=== PATIENT | female | born 1940 | race Caucasian/White ===

== ENCOUNTER 2016-10-24 20:03 | Emergency (ER) | payer MEDICARE ==
[~2016-10-24] VITALS: Ht 165.1 cm; Wt 70.5 kg
[~2016-10-24 20:03] MED LIST: CA C1TAB77 PO; LATA2.5D6 OP; METO50TA3 PO; TIMO5DRO27 OP; WARF2.5T82 PO; WARF5TAB7 PO
[2016-10-24 20:10] VITALS: BP 131/71; PULSE 64; RESP 16; O2SAT 97
--- NOTE | 2016-10-24 20:38 | DRSVH ---
PROCEDURE: X-RAY CHEST ONE VIEW, PORTABLE ([id number]) INDICATIONS: 76 year-old female with chest pain and atrial fibrillation. TECHNIQUE: One view of the chest was acquired. COMPARISON: [facility], [place], XR CHEST 1VW (PORTABLE), 03/03/2015, 14:28. FINDINGS: Surgical changes and devices: Right axillary lymph node dissection clips are again noted. Lungs and pleura: No pleural effusions or pneumothorax. Lungs are clear. Mediastinum: Mediastinal contours appear normal. Heart size is normal. Bones and chest wall: No suspicious bony lesions. Overlying soft tissues appear unremarkable. IMPRESSION: No acute cardiopulmonary disease. Dictated by: Tom Noe M.D. on 10/24/2016 at 20:36 Approved by: Tom Noe M.D. on 10/24/2016 at 20:37
[2016-10-24 20:51] LABS: BASOPHILS % (AUTO) 0.2 % (0-3); EOSINOPHILS % (AUTO) 0 % (0-5); MONOCYTES % (AUTO) 9.1 % (4-12); Mean Corpuscular Hemoglobin 30.6 pg (27.0-35.0); Mean Corpuscular Volume 94.9 fL (81-100); NEUTROPHILS % (AUTO) 60.4 % (40-74); Platelet Count 158 bil/L (150-400)
--- NOTE | 2016-10-24 21:15 | ED.REPORT ---
HPI-Chest Pain 40 and Over Date of Service Oct 24, 2016 ED Provider: Dr. Tay Pt is a 76 year old female with a hx of Afib (on Metoprolol and Coumadin) and breast cancer presenting to the ED complaining of chest tightness and SOB onset 6 days ago while she was sleeping. Denies nausea, vomiting, diaphoresis, or a cough. The SOB is exacerbated by laying down. She has a hx of cardioversions for Afib and her PCP wanted her to have a cardioversion today but she declined because she was busy moving. She stopped in tonight because she hoped we would be able to do her cardioversion. Nursing Notes Stated Complaint: AFIB, SHORTNESS OF BREATH, CHEST TIGHTNESS Chief Complaint: Chest Pain Nursing Notes Reviewed: Yes Allergies: Coded Allergies: No Known Allergies (Unverified , 10/24/16) Scheduled Ca Carb/Vit D3/Mag Ox/Zn Oxide (Boubacar Mag Zinc + D3 Tablet) 1 Each Tablet 1 EACH PO DAILY Latanoprost (Latanoprost) 2.5 Ml Drops 1 GTT OP HS Metoprolol Tartrate (Metoprolol Tartrate) 50 Mg Tablet 50 MG PO BID Timolol (Betimol) 5 Ml Drops 1 GTT OP BID Warfarin Sodium (Warfarin Sodium) 2.5 Mg Tablet 2.5 MG PO DAILY Warfarin Sodium (Warfarin Sodium) 5 Mg Tablet 5 MG PO DAILY General Time Seen by MD: 21:14 Chief Complaint Chest pain Hx Obtained From: Patient Arrived By: Walk-in Sudden in Onset?: No Onset Occurred: 6 days ago Symptom Duration: Since onset Quality: Painful Severity: Current: Mild Severity: Maximum: Moderate Recent Healthcare: No recent hospitalization, Recent doctor visit Similar Sx Previous: Yes Risk Factors )( CAD Risk Stratification Risk factors reviewed, Risk factors N/A Past Medical History Past Medical History breast cancer (currently undergoing treatment with anastrozole) paroxysmal atrial fibrillation (on warfarin) Smoking History Never Smoker Ambulatory Status Independent Review of Systems Respiratory: Reports: Shortness of breath, Denies: Non-productive cough Cardiovascular: Reports: Chest pain GI: Denies: Nausea, Vomiting Skin: Denies Diaphoresis Complete sys rev & neg: except as marked. Physical Exam Initial Vital Signs Vital Signs (First) Date Time Temp Pulse Resp B/P Pulse Ox O2 Delivery O2 Flow Rate FiO2 10/24/16 20:10 36.0 64 16 131/71 97 Room Air Initial VS: Reviewed Head / Eyes: Atraumatic, Normocephalic, PERRL ENT: Mucous membranes moist, Conjunctiva normal, No scleral icterus Extremities: Vascular intact, Neuro intact, No swelling, No tenderness Skin: Warm, Dry, No cyanosis Neurologic: Alert, Oriented, Nonfocal Psychiatric: Mood/affect normal, Behavior normal, Normal thought content General/Constitutional: Awake, Alert, No acute distress, Well appearing Respiratory / Chest: Atraumatic, Breath sounds NL, Breath sounds = bilat, No respiratory distress Cardiovascular: Heart rate NL, Heart sounds NL Afib Abdomen: Atraumatic, Soft, Non-tender Neck: Atraumatic, Supple, No JVD Interpretation & Diagnostics Lab Results Interpretation Result Diagram: 10/24/16204310/24/162043 Test 10/24/16 20:44 10/24/16 22:08 White Blood Count 5.1th/mm3 (3.8-10.1) Red Blood Count 4.28mil/mm3 (3.90-5.20) Hemoglobin 13.1g/dL (12.0-15.6) Hematocrit 40.6% (35.0-46.0) Mean Corpuscular Volume 94.9fL (81-100) Mean Corpuscular Hemoglobin 30.6pg (27.0-35.0) Mean Corpuscular Hemoglobin Concent 32.3% (32.0-37.0) Red Cell Distribution Width 12.7% (12.3-15.4) Platelet Count 158bil/L (150-400) Neutrophils (%) (Auto) 60.4% (40-74) Lymphocytes (%) (Auto) 30.1% (14-46) Monocytes (%) (Auto) 9.1% (4-12) Eosinophils (%) (Auto) 0% (0-5) Basophils (%) (Auto) 0.2% (0-3) Prothrombin Time 22.8sec (8.1-12.5) Prothromb Time International Ratio 2.10ratio Sodium Level 137mEq/L (134-144) Potassium Level 3.9mEq/L (3.5-5.2) Chloride Level 100mEq/L (97-108) Carbon Dioxide Level 24mmol/L (18-29) Blood Urea Nitrogen 15mg/dL (8-27) Creatinine 0.67mg/dL (0.57-1.00) Estimat Glomerular Filtration Rate 123mL/min (>59) Glucose Level 104mg/dL (60-99) Calcium Level 9.4mg/dL (8.5-10.1) Magnesium Level 2.1mg/dL (1.6-2.6) Total Bilirubin 0.7mg/dL (0.0-1.2) Aspartate Amino Transf (AST/SGOT) 23U/L (0-50) Alanine Aminotransferase (ALT/SGPT) 24U/L (0-32) Alkaline Phosphatase 72U/L (25-165) Pro-B-Type Natriuretic Peptide 1212pg/mL (0-738) Total Protein 7.3g/dL (6.4-8.4) Albumin 4.1g/dL (3.4-5.0) Troponin T 0.010ug/L (0.0-0.011) ECG Interpretation ECG Interpretation: Atrial fibrillation with a controlled rate. Right axis deviation. Time: 20:40 Interpreted by: ED physician Normal ECG Interpretation: Normal rate (77) ECG Interpretation: Afib, right axis deviation. No changes from previous. Time: 23:05 Interpreted by: ED physician Normal ECG Interpretation: Normal rate (66) X-Ray Chest Interpretation Chest Xray Interpretation: IMPRESSION: No acute cardiopulmonary disease. Dictated by: Tom Noe M.D. on 10/24/2016 at 20:36 View: Portable, 1 view Interpretation / Wet Read by: Interpret - Radiologist Re-Eval/Medical Decision Med Decision/Clinical Course 76-year-old with paroxysmal A. fib presents in A. fib onset two days ago seeking cardioversion. This was scheduled for this same day in the morning but she declined it. No indication for urgent cardioversion at this point. Negative enzymes 2 and unchanged EKG 2. 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 Time of Eval: 21:56 Patient Status: Condition improved Re-Evaluation/Progress Note: Discussed plan for repeat Troponin. Time of Eval: 23:12 Patient Status: Condition improved Re-Evaluation/Progress Note: Discussed plan for discharge. Pt understands and agrees. Counseled Regarding: Diagnosis, Lab results, Need for follow-up, When/why to return to ED Discharge & Departure Primary Impression: Non-cardiac chest pain Additional Impression: Paroxysmal atrial fibrillation Disposition: Home Discharge Condition All VS Reviewed: Yes Condition: Improved Patient Instructions: A-fib (Atrial Fibrillation) (ED), Chest Pain (ED) Additional Instructions: Call Dr. Santos in the morning to reschedule your cardioversion. Continue your current medications. Return if you develop worsening symptoms, vomiting, nausea, shortness of breath , or other new symptoms of concern Referrals: Sonja Agarwal (PCP) Philip Santos MD Attestation Portions of this note were transcribed by Ivette Barbour. I, Dr. Tay personally performed the history, physical exam and medical decision-making; I reviewed and confirmed the accuracy of the information in the transcribed note. Signed by: Chelita Warren, 10/24/2016 at 4242. copies to: Sonja Agarwal; Philip Santos MD, Christopher W MD Oct 24, 2016 21:15 IVETTE BARBOUR Oct 24, 2016 21:24
[2016-10-24 21:25] LABS: TROPONIN T 0.01 ug/L (0.0-0.011)
[2016-10-24 21:36] LABS: Magnesium 2.1 mg/dL (1.6-2.6)
[2016-10-24 23:12] LABS: INR 2.1 ratio
[2016-10-24 23:17] VITALS: BP 121/61; PULSE 68; RESP 18; O2SAT 97
== END 2016-10-24 22:58 | disposition home or self-care (01) ==
LOC: SED 20:03
DX: R07.89 Other chest pain (principal); I48.91 Unspecified atrial fibrillation; Z79.01 Long term (current) use of anticoagulants

== ENCOUNTER 2016-11-03 07:42 | Day surgery (SDC) | payer MEDICARE ==
[~2016-11-03] VITALS: Ht 165.1 cm; Wt 70.4 kg
[~2016-11-03 07:42] MED LIST changes: +0.9% Sodium Chloride 1,000 ML IV SCH; +Methohexital 10 mg/mL 50 mL Inj IV ONE
[2016-11-03 08:13] VITALS: BP 123/74; PULSE 67; RESP 14; O2SAT 98
[2016-11-03] MEDS ORDERED: Methohexital 10 mg/mL 50 mL Inj ONE (08:23)
[2016-11-03] MEDS ORDERED: Atropine 1 mg/10 mL (Code) Syringe ONE (08:24)
[2016-11-03] MEDS ORDERED: CHOL10008 PO (08:24)
--- NOTE | 2016-11-03 08:26 | NUR ---
Admit [facility] Admitted to [facility] about 0800. VSS. Denies pain. Tele Afib/flutter. IV started. PT/INR 31.2/2.6 per fingerstick and lab sent. Trying to obtain INRs from clinic. Procedure and recovery reviewed and verbalizes understanding.
[2016-11-03 08:31] LABS: INR 2.22 ratio
--- NOTE | 2016-11-03 08:50 | NUR ---
DR LIANG HERE, PROCEDURE STARTED. SEE SEDATION FLOW SHEET
--- NOTE | 2016-11-03 09:24 | DI96 ---
[address] [address] PERIPHERAL CATHETERIZATION/INTERVENTION REPORT PATIENT: IQRA LOPEZ : 1940 MR#: [id number] ADMIT: 11/03/2016 JOB ID: [id number] DATE: 11/03/2016 PROCEDURE: Cardioversion. INDICATION: AFib. PROCEDURAL DETAILS: The patient underwent single synchronized shock of 120 joules which converted her to sinus rhythm. No complications. The patient is advised to stay on anticoagulation and followup in two weeks. I will be discussing the option of going on antiarrhythmic drugs or considering AFib ablation.
[2016-11-03 09:59] VITALS: BP 108/54; PULSE 57; RESP 14; O2SAT 99
[2016-11-03 10:14] VITALS: BP 124/64; PULSE 56; RESP 18; O2SAT 98
--- NOTE | 2016-11-03 11:59 | NUR ---
ISHMAEL Patient recovered post cardioversion in [facility]. Patient denies pain. When fully awake, taking PO, ambulatory and void, patient discharged home. Instructions reviewed with patient and . Written information given and questions answered. Home with at 1045.
== END 2016-11-03 23:59 | disposition home or self-care (01) ==
LOC: SPI 07:42
PROVIDERS: ATTEND Internal Medicine Cardiovascular Disease
DX: I48.0 Paroxysmal atrial fibrillation (principal); Z79.01 Long term (current) use of anticoagulants
CPT/HCPCS: 36415; 85610; 92960; 93005; 94799; 99152; J2250; J7030

== ENCOUNTER 2016-11-17 00:03 | Day surgery (SDC) | payer MEDICARE ==
[~2016-11-17] VITALS: Ht 162.6 cm; Wt 69.4 kg
[~2016-11-17 00:03] MED LIST changes: -0.9% Sodium Chloride 1,000 ML IV SCH; +CHOL10008 PO; -Methohexital 10 mg/mL 50 mL Inj IV ONE
[2016-11-17 07:32] VITALS: BP 136/62; PULSE 63; RESP 16; O2SAT 98
--- NOTE | 2016-11-17 08:00 | NUR ---
Dr Santos called for orders. Order to obtain CBC and BMP with possible flecainide loading pending lab results. Patient informed. Pt is in atrial fibrillation. INR 3.6.
[2016-11-17 09:05] LABS: Mean Corpuscular Hemoglobin 30.2 pg (27.0-35.0); Mean Corpuscular Volume 95.7 fL (81-100)
--- NOTE | 2016-11-17 09:50 | NUR ---
Lab results called to Dr Santos. 12 lead to be obtained, parameters obtained and flecainide to be given if EKG falls within parameters. If patient does not chemically cardiovert then she would have direct current cardioversion approx. 2 hours after flecainide dose. Patient is in agreement with this.
[2016-11-17 11:07] VITALS: BP 134/80; PULSE 68; RESP 14
[2016-11-17 16:15] VITALS: BP 120/68; PULSE 84; RESP 14; O2SAT 96
--- NOTE | 2016-11-17 16:29 | NUR ---
ISHMAEL Results of post ECG at 1600 called to MD. Patient cleared to go home with return tomorrow for cardioversion. Patient states she is pain free, feels well and wishes to go home. Instructions reviewed, written information given and questions answered. Patient instructed to seek immediate medical attention for chest pain or discomfort. Home with daughter at 1635.
== END 2016-11-17 23:59 | disposition home or self-care (01) ==
LOC: SOUO 00:03
PROVIDERS: ATTEND Internal Medicine Cardiovascular Disease
DX: I48.0 Paroxysmal atrial fibrillation (principal); Z79.01 Long term (current) use of anticoagulants

== ENCOUNTER 2016-11-18 01:35 | Day surgery (SDC) | payer MEDICARE ==
[~2016-11-18] VITALS: Ht 162.6 cm; Wt 69.0 kg
[2016-11-18] VITALS (8 sets, daily range): BP systolic 120–143; BP diastolic 62–82; PULSE 55–68; RESP 14–16; O2SAT 96–100
[2016-11-18] MEDS ORDERED: Methohexital 10 mg/mL 50 mL Inj ONE (11:54)
[2016-11-18] MEDS ORDERED: Atropine 1 mg/10 mL (Code) Syringe ONE (11:55)
[2016-11-18 11:57] LABS: INR 3.06 ratio
[2016-11-18] MEDS ORDERED: Methohexital 10 mg/mL 50 mL Inj IV ONE (12:55)
--- NOTE | 2016-11-18 13:15 | DI95 ---
[address] [address] INTERVENTIONAL CARDIAC CATHETERIZATION PATIENT: IQRA LOPEZ : 1940 MR#: [id number] ADMIT: 11/18/2016 JOB ID: [id number] PROCEDURE: Direct current (DC) cardioversion. INDICATION: Atrial fibrillation. HISTORICAL DETAILS: This lady is quite symptomatic from atrial fibrillation. She was brought in for chemical cardioversion yesterday. Flecainide did not convert her. She did have widening of her QRS to 136 msec. For this reason she was not cardioverted yesterday. She was brought in today for electrical cardioversion. PROCEDURAL DETAILS: The patient successfully cardioverted with a single 120 joule synchronized shock. PLAN: The patient is to continue with anticoagulation. Follow up with Dr. Silva. I will see her after she has seen Dr. Silva.
--- NOTE | 2016-11-18 14:42 | NUR ---
Pt discharged to home, via wheelchair, accompanied by sister. Pt's VSS, IV discontinued intact, pt given all discharge instructions, no further questions at time of d/c.
== END 2016-11-18 23:59 | disposition home or self-care (01) ==
LOC: SOUO 01:35
PROVIDERS: ATTEND Internal Medicine Cardiovascular Disease
DX: I48.0 Paroxysmal atrial fibrillation (principal); Z79.01 Long term (current) use of anticoagulants
CPT/HCPCS: 36415; 85610; 92960; 93005; 94770; 94799; 99152; J2250